=== PATIENT | female | born 1995 | race Caucasian/White ===

== ENCOUNTER 2017-09-26 00:01 | Inpatient (IN) | payer OTHER ==
--- NOTE | ~2017-09-26 | OR ---
[facility] [address] [place], [place] [address] Draft DATE OF OPERATION: 09/28/2017 SURGEON: Di Mccall DO PREOPERATIVE DIAGNOSES: 1. Term . 2. Non-reassuring heart tracing. 3. Failed induction of labor. 4. History of pulmonary embolism. 5. Obesity, morbid. 6. Rh negative. POSTOPERATIVE DIAGNOSES: 1. Term . 2. Non-reassuring heart tracing. 3. Failed induction of labor. 4. History of pulmonary embolism. 5. Obesity, morbid. 6. Rh negative. EXPORT FREIGHT SPECIALIST: Jack Godinez MD. ANESTHESIA: Spinal. ESTIMATED BLOOD LOSS: 500 mL. COMPLICATIONS: None. FINDINGS: Viable female born in the LOP position. No nuchal cord or true knot noted. Light meconium. Weight 8 pounds 13 ounces. Apgars 7 and 8 at one and five minutes respectively. Venous blood gases, 7.20, PCO2 58.4, bicarb 22.0, base excess -6.8. Normal tubes, ovaries, and uterus. Hemostasis at the end of the procedure. INDICATIONS: Ms. Harper is a very pleasant 22-year-old, G1, P0, with intrauterine at 39 PATIENT NAME: CLARISSA HARPER OPERATIVE REPORT DATE OF : [birth year] REPORT #: [id number] PHYSICIAN: DI MCCALL DO PCP: DI MCCALL DO REPORT IS CONFIDENTIAL AND NOT TO BE RELEASED WITHOUT AUTHORIZATION [facility] [address] [place], [place] [address] Draft weeks and 3 days, who presented for elective induction of labor. was complicated by history of pulmonary embolism while on combined OCPs prior to and was on anticoagulants, Lovenox, and transitioned to heparin in her 36 weeks. is also complicated by morbid obesity and size greater than dates with last ultrasound showing estimated weight at 89th percentile. She is admitted for elective induction of labor and cervix was closed and unripe. She was given 5 doses of Cytotec and made no cervical change. Approximately 4 hours from her last dose of Cytotec, the fetus suddenly had a deceleration into the 70s, with recovery with tachycardia noted into the 200s. heart rate improved to the 170s, but given remote from delivery and nonreassuring heart status, the patient was counseled and we decided to proceed with primary low transverse delivery. There was difficulty with heart monitor, but the heart rate was monitored audibly at the bedside and heart rate in the 170s was noted with no appreciable decelerations. Consents were signed. Risks, benefits, and alternatives were discussed in detail with the patient. All the patient's questions were answered and the patient agrees with plan. TECHNIQUE: The patient was taken to the operating room, where a time-out was performed to confirm correct patient, correct procedure. Spinal anesthesia was adequately established and intermittent auscultation of the heart rate was performed that demonstrated heart tones in the 160s. After spinal anesthesia was established, the patient was then prepped and draped in the supine position with a bump under her right hip. ICPs were on and running, and a Marroquin catheter was inserted. Ancef 3 g were given preoperatively and no heparin was indicated. She did receive her last dose of heparin on 09/26/2017, at 08:30 p.m., as previously instructed. Once spinal anesthesia was found to be adequate, a Pfannenstiel skin incision was made approximately 3 cm above the pubic symphysis and carried down to the fascia. The fascia was nicked in the midline and fascial incision was extended bilaterally using sharp dissection. The fascia was grasped with Sharmila's elevating the underlying rectus muscle, dissected off bluntly and sharply. The rectus muscles were divided and the peritoneum was grasped with hemostat, elevated, and entered sharply. Peritoneal incision was extended bilaterally using blunt dissection. The uterus was examined, found to be normal. The lower uterine segment was identified. Jorgito self retractor was placed and hysterotomy was then performed at the vesicouterine reflection. Hysterotomy was then extended bilaterally using blunt dissection. Light meconium fluid was noted and the was noted to be in the LOP position. The head was gently elevated into the abdomen, delivered with the assistance of fundal pressure. The remainder of the delivered without difficulty. The was vigorous and cried at and the oral and nasopharynx were bulb suctioned. The cord was doubly clamped and cut and the handed to the waiting pediatric team for further care. Section of cord was obtained for blood gases, returned normal as above. The placenta was then expressed intact with a centrally inserted three-vessel cord. The PATIENT NAME: CLARISSA HARPER OPERATIVE REPORT DATE OF : [birth year] REPORT #: [id number] PHYSICIAN: DI MCCALL DO PCP: DI MCCALL DO REPORT IS CONFIDENTIAL AND NOT TO BE RELEASED WITHOUT AUTHORIZATION [address] [address] Draft uterus was then cleared of any remaining products of conception or clot, and the uterus was reapproximated using 0 Vicryl in a running locked suture. Good hemostasis was appreciated and the uterus was noted to be firm. Pitocin was given to enhance uterine involution per protocol. A 2nd vertical imbricating suture of 0 Vicryl was then applied. A small amount of oozing was noted near the right edge of the hysterotomy, this was repaired with [id number] of 0 Vicryl. The pelvis was then irrigated and found to be hemostatic. Survey of the uterus, ovaries, and fallopian tubes was normal. The Jorgito retractor was removed and ACell sheet was applied to the lower uterine segment. Peritoneum was then reapproximated using 2-0 Vicryl in a running nonlocked suture. Rectus was then loosely reapproximated using 0 Vicryl in two interrupted sutures. The rectus was examined and found to be hemostatic and was irrigated and again noted to be hemostatic. The fascia was then reapproximated using 0 Vicryl in a running nonlocked suture after ACell powder was applied to the rectus sheath. Subcu was examined, found to be hemostatic. It was irrigated and Bovie electrocautery was used on few oozing sites. ACell powder was then applied and the subcu was reapproximated with 3-0 Vicryl in a running nonlocked manner. Skin was then reapproximated using surgical alfredo. The uterus was Crede'd and scant blood was noted. The patient was then taken to the PACU in good and stable condition and the baby is in good condition as well. Sponge, needle, and instrument counts were correct x2 at the end of the procedure. Dr. Godinez was present and participated in all portions of the procedure. DO PIPO Garza/CARRIL /[id number] Copies: ~ PATIENT NAME: CLARISSA HARPER OPERATIVE REPORT DATE OF : [birth year] REPORT #: [id number] PHYSICIAN: DI MCCALL DO PCP: DI MCCALL DO REPORT IS CONFIDENTIAL AND NOT TO BE RELEASED WITHOUT AUTHORIZATION
[2017-09-27] MEDS ORDERED: HEPARIN 5,5000 UNIT3 SUB-Q (03:23)
--- NOTE | 2017-09-28 01:43 | NUR ---
09/28/17 Stacy Mccray PT IS BACK TO [facility] ROOM. ERIC IS TO MOM'S CHEST. PT REPORTS FEELING REALLY TIRED. SHE WAS GIVEN PHENEGRAN PRIOR TO PROCEDURE.
== END 2017-09-30 12:45 | disposition home or self-care (01) | DRG 765 ==
LOC: FBC 00:01
PROVIDERS: ADMIT Obstetrics & Gynecology
PROC: 3E0P7VZ Introduction of Hormone into Female Reproductive, Via Natural or Artificial Opening (ICD-10-PCS; 2017-09-27)
PROC: 10D00Z1 Extraction of Products of Conception, Low, Open Approach (ICD-10-PCS; principal; 2017-09-28 00:46)
DX: O61.0 Failed medical induction of labor (principal); Z68.41 Body mass index [BMI] 40.0-44.9, adult; O76 Abnormality in fetal heart rate and rhythm complicating labor and delivery; O36.63X0 Maternal care for excessive fetal growth, third trimester, not applicable or unspecified; O99.214 Obesity complicating childbirth; E66.01 Morbid (severe) obesity due to excess calories; O77.0 Labor and delivery complicated by meconium in amniotic fluid; Z86.711 Personal history of pulmonary embolism; Z88.5 Allergy status to narcotic agent; Z79.01 Long term (current) use of anticoagulants; Z3A.39 39 weeks gestation of pregnancy; Z37.0 Single live birth
CPT/HCPCS: 01961; 36415; 82803; 85025; 85027; 85730; C1763; J1100; J1650; J1885; J2274; J2370; J2405; J2550; J2590; J2704; J3010; J7120

== ENCOUNTER 2020-01-23 11:26 | Inpatient (IN) | payer BC ==
[~2020-01-23] VITALS: Ht 172.7 cm; Wt 158.8 kg
--- NOTE | ~2020-01-23 | OR ---
[facility] [address] [place], [place] [address] Draft DATE OF OPERATION: 01/24/2020 SURGEON: Di Mccall DO PREOPERATIVE DIAGNOSES: 1. Intrauterine , 39th week gestation. 2. History of prior . 3. History of pulmonary embolism, currently on heparin anticoagulation. POSTOPERATIVE DIAGNOSES: 1. Intrauterine , 39th week gestation. 2. History of prior . 3. History of pulmonary embolism, currently on heparin anticoagulation. PROCEDURE PERFORMED: Repeat low transverse delivery. ANESTHESIA: Spinal. ASSISTANTS: 1. Jack Godinez M.D. 2. Mya Griffiths D.O. ESTIMATED BLOOD LOSS: 500 mL. COMPLICATIONS: None. FINDINGS: Viable male , 9 pounds 7 ounces with Apgars of 8 and 8, born in the MARYBETH position with no nuchal cord. There were dense fascial and rectus sheath adhesions and scant omental adhesions to the peritoneum. Normal tubes and ovaries; however, the lower uterine segment is somewhat thinned. INDICATIONS: Ms. Harper is a very pleasant, 24-year-old, G2, P1-0-0-1 white female, who presents to Labor and Delivery for scheduled repeat low transverse delivery. is complicated by prior , morbid obesity, and history of pulmonary embolism, on PATIENT NAME: CLARISSA HARPER OPERATIVE REPORT DATE OF : [birth year] REPORT #: [id number] PHYSICIAN: DI MCCALL DO PCP: NO PRIMARY CARE PHYSICIAN REPORT IS CONFIDENTIAL AND NOT TO BE RELEASED WITHOUT AUTHORIZATION [facility] [address] [place], [place] [address] Draft anticoagulation through her . Her last dose of heparin was taken approximately 13-14 hours previously. Risks, benefits, and alternatives were discussed in detail with the patient. The patient understands and wishes to proceed with the procedure. DESCRIPTION OF PROCEDURE: The patient was taken to the operating room, where time-out was performed to confirm correct patient and correct procedure. Spinal anesthesia was adequately established. The patient was then prepped and draped in the supine position with a bump of right hip. Ancef 3 g preoperatively were given per SCIP protocol and SCDs were on and squeezing. Marroquin catheter was inserted. Once determining the spinal was adequate, Pfannenstiel skin incision was made through the prior scar and carried down to the fascia in the midline. The fascia was nicked in the midline and fascial incision was extended bilaterally using curved Rodriguez scissors. Dense fascial adhesions to the rectus sheath were noted. The fascia was grasped with Sharmila's, elevated, and the underlying rectus muscles dissected off somewhat with some difficulty using a combination of blunt and sharp dissection. The rectus muscles were then divided in the midline using blunt dissection, and the peritoneum was grasped with hemostats, elevated and entered sharply. Peritoneal incision was extended cephalad-caudad using blunt sharp dissection. A small amount of omental adhesions were noted to the anterior peritoneum. These were clamped, cut, and suture ligated. Attention was then turned to the uterus. The lower uterine segment was somewhat thinned, otherwise appeared normal. Hysterotomy was then performed using a surgical scalpel. Hysterotomy was then extended bilaterally using blunt dissection. Amniotic sac was entered and amniotic fluid was noted to be clear. Surgeon's hand was placed into the uterine cavity, and the head flexed and delivered in the MARYBETH position with the assistance of fundal pressure. The delivered easily and was vigorous and cried at delivery. The cord was doubly clamped and cut and the handed to waiting pediatric team for further care. Cord was obtained for routine analysis and the placenta was expressed intact with a centrally inserted three-vessel cord. The uterus was then cleared of any remaining products of conception or clot. Hysterotomy was then repaired using 0-Monocryl in a running locked manner with a second layer of imbricating suture with 0-Monocryl in a vertical manner. Good hemostasis was appreciated and a small amount of oozing was noted in the midline that was made hemostatic with an additional suture of 0-Monocryl in a [id number]. The pelvis was irrigated and found to be hemostatic. Tubes and ovaries were noted to be normal bilaterally. The Jorgito retractor was removed and ACell sheet was applied to the lower uterine segment after ensuring hemostasis. Peritoneum was then reapproximated using 2-0 Vicryl in a running nonlocked manner. Rectus was examined and found to be hemostatic. Rectus sheath was reapproximated using 0-Vicryl in interrupted sutures of 0-Vicryl. ACell powder was applied to the rectus sheath. Fascia was then reapproximated using 0-Vicryl in a running nonlocked manner. Subcu was examined, found to be hemostatic with judicious use of Bovie electrocautery. Subcu was reapproximated using 2-0 Vicryl in a running nonlocked manner. Skin was then reapproximated using PATIENT NAME: CLARISSA HARPER OPERATIVE REPORT DATE OF : [birth year] REPORT #: [id number] PHYSICIAN: DI MCCALL DO PCP: NO PRIMARY CARE PHYSICIAN REPORT IS CONFIDENTIAL AND NOT TO BE RELEASED WITHOUT AUTHORIZATION [facility] [address] [place] [address] Draft surgical alfredo. The uterus was Crede'd for scant amount of blood, and the patient was taken the PACU in good and stable condition. Sponge, needle, and instrument counts correct x2 at the end the procedure. Dr. Godinez and Dr. Griffiths were present and participated in all portions of procedure. Di Mccall DO JPETER/CARRIL /[id number] Copies: ~ PATIENT NAME: CLARISSA HARPER OPERATIVE REPORT DATE OF : [birth year] REPORT #: [id number] PHYSICIAN: DI MCCALL DO PCP: NO PRIMARY CARE PHYSICIAN REPORT IS CONFIDENTIAL AND NOT TO BE RELEASED WITHOUT AUTHORIZATION
[~2020-01-23 11:26] MED LIST: HEPARIN 5,5000 UNIT3 SUB-Q
--- NOTE | 2020-01-24 08:56 | NUR ---
01/24/20 0856 Farrah Schulte 0845- PT ARRIVES TO [facility] ROOM #103 ALERT AND ORIENTED. PT REPORTS NO PAIN OR NAUSEA. RESP EVEN AND UNLABORED. OXYGEN SAT HIGH 90'S ON RA. PT HAS A 20G IV TO HER RIGHT HAND THAT IS INFUSING LR WITH 20 UNITS OF PITOCIN. INFUSING WELL. PT REPORTS NO PAIN OR OTHER ISSUES WITH HER IV SITE. DANIEL DAVEY RN AT THE BEDSIDE ALONG WITH PT'S AND BABY. 0847- PT SAT UP SLIGHTLY IN BED. PT REPORTS NO DIZZINESS, NAUSEA, DIAPHORESIS, OR PAIN. 0851- PT SAT UP A LITTLE MORE IN BED. PT REPORTS NO SYMPTOMS. BABY TO PT'S RIGHT BREAST WITH ASSISTANCE FROM ESTER DAVEY.
--- NOTE | 2020-01-25 07:35 | PR ---
[facility] [address] [place], [place] [address] Signed PP Progress Notes Datetime Report Generated by CPN: 01/25/2020 07:35 SUBJECTIVE: [id number] Pain: Within Normal Limits Nausea/Vomiting: Denies Flatus: Yes Bowel Movement: No Vital Signs: [id number] Vital Signs: Reviewed; Within Normal Limits Cardiovascular: Normal Respiratory: Normal Abdomen/Uterus: Normal Lochia: Normal Vulva/Perineum: Not Done Breasts: Not Done CVA Tenderness: Normal Extremities: Normal Incision: Normal Progress: Normal Exam Comments: Fundus firm U-2 nontender. Pt up to chair and unable to evaluate incision; will check later today. IMPRESSION/PLAN/PROCEDURES: [id number] Impression: Normal Progression Plan: Continue Present Management Progress Notes: Pt seen and examined. Doing well. C/O moderate/severe anxiety. Ambulating, voiding, and tolerating full diet. Pain and lochia minimal. well. No fevers/chills or other concerns. Anticipate d/c home tomorrow. Reviewed strategies to manage diet. Pt planning on establishing with therapist specializing in CBT after discharge. Reviewed pharm options for management of anxiety and recommended against benzodiazapines. Discussed flexaril as an off label option and pt will consider. Anticpate d/c home tomorrow. Signing Physician: Di Mccall DO Copies: ~ *Electronically Signed* 01/25/20 0735 DI MCCALL DO PATIENT NAME: CLARISSA JAMES PROGRESS NOTE DATE OF : [birth year] PHYSICIAN: DI MCCALL DO RPT #: [id number] REPORT IS CONFIDENTIAL AND NOT TO BE RELEASED WITHOUT AUTHORIZATION
--- NOTE | 2020-01-26 09:12 | PR ---
[facility] [address] [facility] [place], [place] [address] Signed PP Progress Notes Datetime Report Generated by CPN: 01/26/2020 09:12 SUBJECTIVE: [id number] Pain: Within Normal Limits Nausea/Vomiting: Denies Flatus: Yes Bowel Movement: No Vital Signs: [id number] Vital Signs: Reviewed Notable Details: Mild tachycardia Cardiovascular: Normal Respiratory: Normal Abdomen/Uterus: Normal Lochia: Not Done Vulva/Perineum: Not Done Breasts: Not Done CVA Tenderness: Normal Extremities: Normal Incision: Normal Progress: Normal Exam Comments: Fundus firm U-2 nontender incision healing well IMPRESSION/PLAN/PROCEDURES: [id number] Impression: Normal Progression Plan: Discharge Progress Notes: Pt seen and examined. Doing well. Reports anxiety much improved and pt planning to meet with therapist this week. Ambulating, voiding, and tolerating full diet. Pain and lochia minimal. well. Pt desires d/c home this AM. All questions answered. F/U 3 days for BP check and staple removal Signing Physician: Di Mccall DO Copies: ~ *Electronically Signed* 01/26/20911 DI MCCALL DO PATIENT NAME: CLARISSA JAMES PROGRESS NOTE DATE OF : [birth year] PHYSICIAN: DI MCCALL DO RPT #: [id number] REPORT IS CONFIDENTIAL AND NOT TO BE RELEASED WITHOUT AUTHORIZATION
== END 2020-01-26 10:00 | disposition home or self-care (01) | DRG 788 ==
LOC: FBC 01-24 04:57
PROVIDERS: ADMIT Obstetrics & Gynecology; ATTEND Obstetrics & Gynecology
PROC: 10D00Z1 Extraction of Products of Conception, Low, Open Approach (ICD-10-PCS; principal; 2020-01-24 06:45)
DX: O34.211 Maternal care for low transverse scar from previous cesarean delivery (principal); N85.8 Other specified noninflammatory disorders of uterus; Z37.0 Single live birth; O99.214 Obesity complicating childbirth; E66.01 Morbid (severe) obesity due to excess calories; O99.344 Other mental disorders complicating childbirth; F41.9 Anxiety disorder, unspecified; Z79.01 Long term (current) use of anticoagulants; Z86.711 Personal history of pulmonary embolism; Z3A.39 39 weeks gestation of pregnancy; Z88.5 Allergy status to narcotic agent
CPT/HCPCS: 01961; 36415; 85027; A9270; J0690; J1200; J1650; J1885; J2001; J2274; J2300; J2370; J2405; J2590; J3010; J7121